=== PATIENT | female | born 1975 | race Caucasian/White ===

== ENCOUNTER 2017-07-29 09:21 | Emergency (ER) | payer OTHER, MEDICARE ==
[~2017-07-29] VITALS: Ht 177.8 cm; Wt 58.1 kg
[~2017-07-29 09:21] MED LIST: CARAFATE1 G1 PO; K-DUR20 MEQ PO; LAMICTAL200 MG PO; LASIX80 MG PO; OXYCODONE5 M1 PO; PROTONIX40 MG PO; TRAZADONE HYDR100 MG PO; WELLBUTRIN XL300 MG PO; Zofran4 MG PO; [UNRECOGNIZED DRUG - REMARK]
[2017-07-29] MEDS ORDERED: NAPROSYN500 MG PO (10:13)
== END 2017-07-29 10:30 | disposition home or self-care (01) ==
LOC: ED 09:21
DX: S52.591A Other fractures of lower end of right radius, initial encounter for closed fracture (principal); S00.33XA Contusion of nose, initial encounter; Z98.890 Other specified postprocedural states; Z79.899 Other long term (current) drug therapy; V80.010A Animal-rider injured by fall from or being thrown from horse in noncollision accident, initial encounter; Y93.89 Activity, other specified; Y92.89 Other specified places as the place of occurrence of the external cause; Y99.9 Unspecified external cause status

== ENCOUNTER → 2017-08-30 | Outpatient (CLI) | payer OTHER, MEDICARE ==
[~2017-08-30] MED LIST changes: +NAPROSYN500 MG PO
== END | disposition home or self-care (01) ==
LOC: LAB 06:51
DX: S52.591A Other fractures of lower end of right radius, initial encounter for closed fracture (principal); S52.201A Unspecified fracture of shaft of right ulna, initial encounter for closed fracture; E78.00 Pure hypercholesterolemia, unspecified; E55.9 Vitamin D deficiency, unspecified; K21.9 Gastro-esophageal reflux disease without esophagitis; G62.9 Polyneuropathy, unspecified; M54.9 Dorsalgia, unspecified; I50.9 Heart failure, unspecified; X58.XXXA Exposure to other specified factors, initial encounter; Y93.89 Activity, other specified; Y99.8 Other external cause status; Y92.89 Other specified places as the place of occurrence of the external cause

== ENCOUNTER 2018-01-01 20:52 | Emergency (ER) | payer OTHER, MEDICARE ==
[~2018-01-01] VITALS: Ht 177.8 cm; Wt 61.7 kg
--- NOTE | ~2018-01-01 | EKG ---
[place], [place] ELECTROCARDIOGRAM REPORT NAME: FRANCIS GAMEZ UNIT #: [id number] ROOM: DOCTOR: EPIPHANY DRAFT REPORT BIRTHDATE: [birth year] [facility] Test Date: 2018-01-01 Test Time: 20:57:27 Pat Name: FRANCIS GAMEZ Department: Room: Gender: F Consolidator: Drew Wiley : 1975 Requested By: MARKELL DRAPER PA-C Order Number: [id number] Reading MD: Jackie Verdin MD Measurements Intervals [place] Rate: 105 P: 63 CT: 136 QRS: 48 QRSD: 83 T: 49 QT: 349 QTc: 462 Interpretive Statements Sinus tachycardia Probable left atrial enlargement Electronically Signed On 01-03-2018 14:47:25 PDT by Jackie Verdin MD CM:EKGRPT:ELECTROCARDIOGRAM REPORT [id number] MARKELL DRAPER PA-C EPIPHANY DRAFT REPORT MARKELL DRAPER PA-C
[2018-01-01 21:17] LABS: BASO # 0.1 10*3/uL (0.0-0.1); BASO % 0.7 % (0.0-1.0); EOS # 0.2 10*3/uL (0.0-0.4); EOS % 1.7 % (1.0-4.0); HEMATOCRIT 41.5 % (37.0-47.0); HEMOGLOBIN 14.1 g/dl (12.0-16.0); LYMPH # 3.6 10*3/uL (1.3-4.4); LYMPH % 33.4 % (27.0-41.0); MEAN CORPUSCULAR HGB 31.3 pg (27.0-31.0); MEAN PLATELET VOLUME 11.4 fl (9.6-12.3); MONO # 0.6 10*3/uL (0.1-1.0); MONO % 5.7 % (3.0-9.0); NEUT # 6.2 10*3/uL (2.3-7.9); NEUT % 58.1 % (47.0-73.0); PLATELET COUNT AUTOMATED 249 10*3/uL (130-400); RED BLOOD COUNT 4.51 10*6/uL (4.10-5.10); RED CELL DISTRI WIDTH 13.4 % (0-14.5); WHITE BLOOD COUNT 10.6 10*3/uL (4.8-10.8)
[2018-01-01 21:31] LABS: ACT PARTIAL THROMBO TIME 23.8 SECONDS (20.8-31.5); INTERNATIONAL NORM RATIO 0.9 (2.0-3.5)
[2018-01-01 21:33] LABS: ALBUMIN 3.5 gm/dl (3.1-4.5); ALKALINE PHOSPHATASE 76 U/L (45-117); BUN 18 mg/dl (7-24); CHLORIDE 105 mmol/L (98-107); CREATININE 0.82 mg/dL (0.55-1.02); POTASSIUM 3.6 mmol/L (3.5-5.1); SGOT/AST 7 IU/L (3-35); SGPT/ALT 15 U/L (12-78); SODIUM 140 mmol/L (136-145); TOTAL PROTEIN 7.1 gm/dL (6.4-8.2)
[2018-01-01 21:37] LABS: TROPONIN I < 0.015 ng/ml (<0.045)
[2018-01-01] MEDS ORDERED: POTASSIUM CHLO10 MEQ PO (21:42)
[2018-01-01] MEDS ORDERED: XANAX0.5 MG PO (21:42)
[2018-01-01] MEDS ORDERED: REMERON30 M1 PO (21:43)
[2018-01-01] MEDS ORDERED: CYMBALTA30 MG PO (21:43)
[2018-01-01] MEDS ORDERED: Synthroid,Levo50 MCG PO (21:43)
[2018-01-01] MEDS ORDERED: HYDROXYZINE HCL25 MG PO (22:54)
== END 2018-01-01 23:36 | disposition home or self-care (01) ==
LOC: ED 20:52
PROVIDERS: Physician Assistant
DX: F41.9 Anxiety disorder, unspecified (principal); F13.239 Sedative, hypnotic or anxiolytic dependence with withdrawal, unspecified; R07.9 Chest pain, unspecified; R19.7 Diarrhea, unspecified; R11.10 Vomiting, unspecified; F17.200 Nicotine dependence, unspecified, uncomplicated; Z88.8 Allergy status to other drugs, medicaments and biological substances; Z79.899 Other long term (current) drug therapy

== ENCOUNTER → 2018-03-20 | Outpatient (CLI) | payer OTHER, MEDICARE ==
[~2018-03-20] MED LIST changes: +CYMBALTA30 MG PO; +HYDROXYZINE HCL25 MG PO; +POTASSIUM CHLO10 MEQ PO; +REMERON30 M1 PO; +Synthroid,Levo50 MCG PO; +XANAX0.5 MG PO
[2018-03-20 09:26] LABS: HEMATOCRIT 43.9 % (37.0-47.0); HEMOGLOBIN 14.7 g/dl (12.0-16.0); MEAN CORPUSCULAR HGB 31.1 pg (27.0-31.0); MEAN CORPUSCULAR HGB CONC 33.5 g/dl (33.0-37.0); MEAN PLATELET VOLUME 12.7 fl (9.6-12.3); RED BLOOD COUNT 4.72 10*6/uL (4.10-5.10); RED CELL DISTRI WIDTH 13.8 % (0-14.5); WHITE BLOOD COUNT 6.2 10*3/uL (4.8-10.8)
[2018-03-20 09:30] LABS: CHLORIDE 106 mmol/L (98-107); SODIUM 137 mmol/L (136-145)
[2018-03-20 09:49] LABS: ALBUMIN 3.2 gm/dl (3.1-4.5); ALKALINE PHOSPHATASE 87 U/L (45-117); BUN 12 mg/dl (7-24); CHOLESTEROL 137 mg/dL (<200); CREATININE 0.94 mg/dL (0.55-1.02); HDL CHOLESTEROL 34 mg/dl (40-60); LDL CHOLESTEROL 65 mg/dL (9-159); SGOT/AST 9 IU/L (3-35); SGPT/ALT 18 U/L (12-78); TOTAL PROTEIN 6.7 gm/dL (6.4-8.2); TRIGLYCERIDES 189 mg/dl (<150); VLDL CHOLESTEROL 38 mg/dL (6-40)
== END | disposition home or self-care (01) ==
LOC: LAB 08:18
PROVIDERS: Registered Nurse Flight
DX: F31.9 Bipolar disorder, unspecified (principal); E03.9 Hypothyroidism, unspecified; E78.5 Hyperlipidemia, unspecified; F34.1 Dysthymic disorder

== ENCOUNTER 2018-10-23 12:13 | Emergency (ER) | payer OTHER, MEDICARE ==
[~2018-10-23] VITALS: Ht 177.8 cm; Wt 75.3 kg
== END 2018-10-23 14:42 | disposition home or self-care (01) ==
LOC: ED 12:13
DX: S93.401A Sprain of unspecified ligament of right ankle, initial encounter (principal); M79.671 Pain in right foot; F17.200 Nicotine dependence, unspecified, uncomplicated; Z79.899 Other long term (current) drug therapy; Z88.8 Allergy status to other drugs, medicaments and biological substances; W22.8XXA Striking against or struck by other objects, initial encounter; Y93.89 Activity, other specified; Y92.89 Other specified places as the place of occurrence of the external cause; Y99.8 Other external cause status

== ENCOUNTER 2018-11-23 03:46 | Emergency (ER) | payer MEDICARE ==
[~2018-11-23] VITALS: Ht 177.8 cm; Wt 73.9 kg
[2018-11-23] MEDS ORDERED: DOXEPIN HCL50 MG PO (03:58)
[2018-11-23] MEDS ORDERED: SERTRALINE HYD100 MG PO (03:59)
[2018-11-23] MEDS ORDERED: LYRICA200 M1 PO (04:00)
[2018-11-23] MEDS ORDERED: LAMOTRIGINE25 M1 PO (04:00)
[2018-11-23] MEDS ORDERED: IBU800 M1 PO (04:00)
[2018-11-23 05:03] LABS: BASO # 0.1 10*3/uL (0.0-0.1); BASO % 0.8 % (0.0-1.0); EOS # 0.2 10*3/uL (0.0-0.4); EOS % 2.6 % (1.0-4.0); HEMATOCRIT 43.8 % (37.0-47.0); HEMOGLOBIN 14.5 g/dl (12.0-16.0); LYMPH # 2.9 10*3/uL (1.3-4.4); LYMPH % 37.2 % (27.0-41.0); MEAN CELL VOLUME 93.6 fl (81.0-99.0); MEAN CORPUSCULAR HGB CONC 33.1 g/dl (33.0-37.0); MEAN PLATELET VOLUME 11.5 fl (9.6-12.3); MONO # 0.5 10*3/uL (0.1-1.0); MONO % 6.4 % (3.0-9.0); NEUT # 4.1 10*3/uL (2.3-7.9); NEUT % 52.7 % (47.0-73.0); PLATELET COUNT AUTOMATED 194 10*3/uL (130-400); RED BLOOD COUNT 4.68 10*6/uL (4.10-5.10); WHITE BLOOD COUNT 7.8 10*3/uL (4.8-10.8)
[2018-11-23 05:18] LABS: ALBUMIN 3.5 gm/dl (3.1-4.5); ALKALINE PHOSPHATASE 95 U/L (45-117); BUN 20 mg/dl (7-24); CHLORIDE 112 mmol/L (98-107); CREATININE 0.85 mg/dL (0.55-1.02); LIPASE 232 U/L (73-393); POTASSIUM 3.6 mmol/L (3.5-5.1); SGOT/AST 10 IU/L (3-35); SGPT/ALT 16 U/L (12-78); SODIUM 141 mmol/L (136-145); TOTAL PROTEIN 7.3 gm/dL (6.4-8.2)
[2018-11-23] MEDS ORDERED: DICYCLOMINE HCL20 MG PO (06:06)
[2018-11-23] MEDS ORDERED: KETOROLAC10 MG PO (06:06)
[2018-11-23] MEDS ORDERED: CEFDINIR300 MG PO (06:06)
== END 2018-11-23 06:21 | disposition home or self-care (01) ==
LOC: ED 03:46
PROVIDERS: Emergency Medicine Emergency Medical Services
DX: K52.9 Noninfective gastroenteritis and colitis, unspecified (principal); H65.03 Acute serous otitis media, bilateral; G43.909 Migraine, unspecified, not intractable, without status migrainosus; Z88.8 Allergy status to other drugs, medicaments and biological substances; Z79.899 Other long term (current) drug therapy

== ENCOUNTER 2018-11-29 18:25 | Emergency (ER) | payer MEDICARE ==
[~2018-11-29] VITALS: Ht 177.8 cm; Wt 72.6 kg
[~2018-11-29 18:25] MED LIST changes: +CEFDINIR300 MG PO; +DICYCLOMINE HCL20 MG PO; +DOXEPIN HCL50 MG PO; +IBU800 M1 PO; +KETOROLAC10 MG PO; +LAMOTRIGINE25 M1 PO; +LYRICA200 M1 PO; +SERTRALINE HYD100 MG PO
[2018-11-29] MEDS ORDERED: ZOFRAN4 MG PO (18:52)
[2018-11-29] MEDS ORDERED: CLARITIN-D 121 EACH PO (18:52)
[2018-11-29] MEDS ORDERED: ZANTAC 150150 MG PO (18:52)
[2018-11-29] MEDS ORDERED: FLONASE ALLERG9.9 ML NAS (18:52)
== END 2018-11-29 19:15 | disposition home or self-care (01) ==
LOC: ED 18:25
DX: H65.93 Unspecified nonsuppurative otitis media, bilateral (principal); Z90.711 Acquired absence of uterus with remaining cervical stump; Z98.890 Other specified postprocedural states; Z79.899 Other long term (current) drug therapy; Z88.8 Allergy status to other drugs, medicaments and biological substances; Z90.89 Acquired absence of other organs

== ENCOUNTER 2019-01-08 21:01 | Emergency (ER) | payer MEDICARE ==
[~2019-01-08] VITALS: Ht 177.8 cm; Wt 71.7 kg
[~2019-01-08 21:01] MED LIST changes: +CLARITIN-D 121 EACH PO; +FLONASE ALLERG9.9 ML NAS; +ZANTAC 150150 MG PO; +ZOFRAN4 MG PO
== END 2019-01-08 21:40 | disposition home or self-care (01) ==
LOC: ED 21:01
DX: S80.12XA Contusion of left lower leg, initial encounter (principal); S80.11XA Contusion of right lower leg, initial encounter; F12.90 Cannabis use, unspecified, uncomplicated; Z88.8 Allergy status to other drugs, medicaments and biological substances; Z79.899 Other long term (current) drug therapy; Z79.2 Long term (current) use of antibiotics; X58.XXXA Exposure to other specified factors, initial encounter; Y93.89 Activity, other specified; Y92.89 Other specified places as the place of occurrence of the external cause; Y99.8 Other external cause status